=== PATIENT | male | born 1940 | race Caucasian/White ===

== ENCOUNTER 2022-10-25 09:35 | Outpatient (CLI) | payer MEDICARE, SELFPAY ==
[2022-10-25 09:51] LABS: Basophils Percent Auto 0.3 % (0.2-1.2); Eosinophils Absolute Auto 0.2 K/mm3 (0-0.3); Eosinophils Percent Auto 3.5 % (0-4.4); Hemoglobin 11.1 g/dL (14.0-18.0); Immature Granulocyte Absolute 0.03 K/mm3 (0.00-0.031); Immature Granulocyte Percent A 0.5 % (0-0.5); Lymphocytes Absolute Auto 0.36 K/mm3 (0.9-3.2); Lymphocytes Percent Auto 5.7 % (18.3-44.2); Mean Corpuscular HGB Conc 31.7 g/dl (32-36); Mean Corpuscular Hemoglobin 30.8 pg (26-34); Mean Corpuscular Volume 97.2 fl (80-100); Mean Platelet Volume 9.4 fl (7.4-10.4); Monocytes Absolute Auto 0.7 K/mm3 (0.1-0.6); Monocytes Percent Auto 10.5 % (2.6-8.5); Neutrophils Absolute Auto 5.1 K/mm3 (1.3-6.7); Neutrophils Percent Auto 79.5 % (45.5-73.1); Platelet Count Result 205 k/mm3 (150-375); Red Cell Distribution Width 16.7 % (11.5-14.5); White Blood Count 6.4 K/mm3 (4.5-10.0)
[2022-10-25 14:23] LABS: Iron 73 ug/dL (49-181)
[2022-10-25 14:27] LABS: Alanine Aminotransferase 20 U/L (6-50); Albumin Level 3.9 g/dL (3.5-5.1); Alkaline Phosphatase 77 U/L (38-126); Anion Gap 6 mmol/L (8-16); Aspartate Amino Transferase 28 U/L (17-59); Bilirubin,Total 0.6 mg/dL (0.2-1.3); Blood Urea Nitrogen 29 mg/dL (9-20); Calcium 9.3 mg/dL (8.4-10.2); Carbon Dioxide 28 mmol/L (22-30); Chloride 104 mmol/L (98-107); Estimated Glomerular Filt Rate 53; Glucose 141 mg/dL (65-110); Potassium 4.6 mmol/L (3.4-5.0); Sodium 138 mmol/L (137-145)
[2022-10-25 14:44] LABS: Percent Iron Saturation 25 % (20-50)
== END 2022-10-25 09:36 | disposition home or self-care (01) ==
LOC: ANHLAB 09:36
PROVIDERS: PCP Family Medicine; Visit Provider Internal Medicine Hematology & Oncology
DX: D64.9 Anemia, unspecified (principal)
CPT/HCPCS: 36415; 80053; 82728; 83540; 83550; 85025

== ENCOUNTER 2023-08-24 14:15 | Outpatient (RCR) | payer MEDICARE, OTHER, SELFPAY ==
--- NOTE | 2023-07-12 17:16 | OPREHPOC ---
Outpatient Therapy Plan of Care This is a Multidisciplinary Plan of Care that may contain components documented by all disciplines (PT, OT, and ST.) PT Goal 1 Goal Pt will be independent in HEP Pt will verbalize understanding of diagnosis and prognosis Target Visit 10 PT Problem 2 PT Problem #2 Pain PT Goal 1 Goal Pt will report highest pain level at 5/10 since starting therapy to show improvement in deficits Target Visit 10 PT Goal 2 Goal Pt will report greatest pain level at 3/10 or less to improve ADLs and activities Target Visit 20 PT Problem 3 PT Problem #3 Impaired Range of Motion PT Goal 1 Goal Pt will demo lumbar active ROM of 50% or greater in all planes Target Visit 10 PT Goal 2 Goal Pt will demo lumbar active ROM of 60% or greater in all planes Target Visit 20 PT Problem 4 PT Problem #4 Impaired Strength PT Goal 1 Goal Pt will demo strength of 3+5 gluteals for lumbar support Target Visit 10 PT Goal 2 Goal Pt will demo strength of 4/5 gluteals for lumbar support Target Visit 20
--- NOTE | 2023-07-12 17:16 | PTOPEVAL1 ---
Assessment and note entered by Aby Owens, PT Evaluation Information Assessment Status Evaluation Diagnosis low back pain w/out myelopathy or radiculopathy, weakness Therapy conditions abnormal postures oth. abnormalities of gait and mobility Onset 3-5 years Subjective Information Pt reports can't walk due to pain just above belt line. States had spinal surgery (review shows L4-5 laminectomy) back started hurting shortly after hip replacement right hip replacement and spinal surgery; both less than 5 years ago. Greatest pain is in back with walking about 2 inches above beltline. (repeated multiple times). No numbness, tingling, or pain down the legs. Both feet are swollen all the time Was seeing PT at another facility for a lengthy period of time but hasn't been about a year. Pt states doesn't think can walk more than a block , or working on things has to sit to work on things. Sitting has no pain. Will take a chair with him in home Goes to [facility] 5 days a week Reported Pain Level Pain Score 0: Self Report Assessment PT Clinical Summary Pt presents with complaints of low back pain he states last 3-5 years. Pt does appear to be a poor historian, is able to perform activities with instruction with ease. Pt demo's decreased flexibiltiy, ROM, and strength of the lumbopelvic area all leading to difficulty in walking and balance as well as increased low back pain. Pt will greatly benefit from therapy in order to address deficits, reduce pain, and improve safe, independent function. Plan of Care Interventions Check Out for Orthotic/Pr,Electrical Stimulation, Gait Training,Hot Pack/Cold Pack,Manual Therapy, Neuro Re-education,Patient/Caregiver Educati, Therapeutic Activities,Therapeutic Exercise,Self- Care/Home Management PT Services Indicated Yes Treatment Frequency and 1-2x weekly x 20 visits Duration These treatments will address the objective and functional deficits as de
--- NOTE | 2023-08-09 16:12 | PTOPPROG ---
Assessment and note entered by Deven Alcantar SPT Assessment Status Re-evaluation Diagnosis low back pain w/out myelopathy or radiculopathy, weakness Therapy Conditions Abnormal postures and other abnormalities of gait and mobility Onset 3-5 years Subjective Information Pt states ever day has been a little better and has been able to return to the rec center 3 or more days a week. Pt notes that his walking distance has improved and pain levels have improved. Pt states in the summer he is more active and he feels better than he did this winter pt reports 70% better and would like to continue therapy with current plan Assessment PT Clinical Summary Pt presents to physical therapy for re-evaluation after 9 visits of Physical therapy. Pt reports walking tolerance has improved significantly and he does not have to stop as frequently due to back pain. Upon examination pt showed improvement in functional outcome measures such as the oswestry low back disability questionnaire. Pt demonstrated gains in 2 min walk test, 5 x sit to stand. Pt states he feels 70% better but would still like to continue therapy to make further improvements in strength ROM, and walking tolerance. Physical therapy is recommended 1x a week for the next 4 weeks. Plan of Care Interventions Check Out for Orthotic/Pr,Electrical Stimulation, Gait Training,Hot Pack/Cold Pack,Manual Therapy, Neuro Re-education,Patient/Caregiver Educati, Therapeutic Activities,Therapeutic Exercise,Self- Care/Home Management PT Services Indicated Yes Treatment Frequency and 1x per week for 4 weeks Duration These treatments will address the objective and functional deficits as defined above. The patient will be advanced safely and appropriately in order for the patient to progress towards his/her prior level of function. Additional exercises will be introduced and as well as a comprehensive home exercise program upon discharge, if needed, ?to ensure carryover of functional gains achieved in the clinic. This treatment plan has been reviewed and agreement upon by the patient.
--- NOTE | 2023-09-08 13:24 | PTOPDC ---
Assessment and note entered by Aby Owens, PT Assessment Status Discharge - Pt Not Present Diagnosis low back pain w/out myelopathy or radiculopathy, weakness Onset 3-5 years Subjective Information (08/09/23) Pt states ever day has been a little better and has been able to return to the rec center 3 or more days a week. Pt notes that his walking distance has improved and pain levels have improved. Pt states in the summer he is more active and he feels better than he did this winter pt reports 70% better and would like to continue therapy with current plan Assessment PT Clinical Summary As of last reevaluation approx one month ago, pt reported feeling 70% improved and had met multiple goals. However since this point he attended 2 more visits, had a disagreement with one of his scheduled visits, and requested to cancel his remaining appointments. Thus patient is being discharged per request. Plan of Care PT Services Indicated No
== END 2023-09-08 14:12 | disposition home or self-care (01) ==
LOC: ANHHIPT 14:15
PROVIDERS: PCP Family Medicine; Visit Provider Family Medicine
DX: R53.1 Weakness (principal); M47.816 Spondylosis without myelopathy or radiculopathy, lumbar region
CPT/HCPCS: 97110; 97112; 97140; 97162; 97530; 97750

== ENCOUNTER 2023-12-04 09:59 | Outpatient (CLI) | payer OTHER, SELFPAY ==
[2023-12-04 10:17] LABS: Basophils Percent Auto 0.2 % (0.2-1.2); Eosinophils Absolute Auto 0.2 K/mm3 (0-0.3); Eosinophils Percent Auto 3.5 % (0-4.4); Hematocrit 30.1 % (42.0-52.0); Hemoglobin 9.5 g/dL (14.0-18.0); Immature Granulocyte Absolute 0.03 K/mm3 (0.00-0.031); Immature Granulocyte Percent A 0.5 % (0-0.5); Lymphocytes Absolute Auto 0.29 K/mm3 (0.9-3.2); Lymphocytes Percent Auto 4.7 % (18.3-44.2); Mean Corpuscular HGB Conc 31.6 g/dl (32-36); Mean Corpuscular Hemoglobin 30.9 pg (26-34); Monocytes Absolute Auto 0.6 K/mm3 (0.1-0.6); Monocytes Percent Auto 9.8 % (2.6-8.5); Neutrophils Absolute Auto 5.1 K/mm3 (1.3-6.7); Neutrophils Percent Auto 81.3 % (45.5-73.1); Platelet Count Result 254 k/mm3 (150-375); Red Blood Count 3.07 M/mm3 (4.6-6.20); Red Cell Distribution Width 13.7 % (11.5-14.5); White Blood Count 6.2 K/mm3 (4.5-10.0)
[2023-12-04 12:40] LABS: Iron 50 ug/dL (49-181)
[2023-12-04 12:46] LABS: Anion Gap 11 mmol/L (4-12); Blood Urea Nitrogen 28 mg/dL (9-20); Calcium 9.3 mg/dL (8.4-10.2); Carbon Dioxide 25 mmol/L (22-30); Chloride 96 mmol/L (98-107); Estimated Glomerular Filt Rate 49; Glucose 106 mg/dL (65-110); Potassium 5.1 mmol/L (3.4-5.0); Sodium 132 mmol/L (137-145)
[2023-12-04 12:53] LABS: Percent Iron Saturation 19 % (20-50)
[2023-12-04 14:14] LABS: Folic Acid > 20.0 ng/mL (2.76->20)
== END 2023-12-04 10:00 | disposition home or self-care (01) ==
PROVIDERS: PCP Family Medicine; Visit Provider Internal Medicine Hematology & Oncology
DX: D64.9 Anemia, unspecified (principal)
CPT/HCPCS: 36415; 80048; 82607; 82728; 82746; 83540; 83550; 85025